=== PATIENT | male | born 1950 | race Caucasian/White ===

== ENCOUNTER → 2017-07-10 | Outpatient (CLI) | payer OTHER ==
[~2017-07-10] MED LIST: ALBU6.7H INH; ASPI-515 PO; BECL8.7A6 INH; FLUT200B INH; GUAI600T80 PO; LEVO500T47 PO; LOSA25TA2 PO; OMEP20TA62 PO; PRED20TA PO
== END | disposition home or self-care (01) ==
LOC: CFH 10:25
PROVIDERS: ATTEND Internal Medicine Cardiovascular Disease
DX: I08.0 Rheumatic disorders of both mitral and aortic valves (principal); J45.909 Unspecified asthma, uncomplicated
CPT/HCPCS: 93306

== ENCOUNTER 2018-12-23 06:46 | Outpatient (CLI) | payer OTHER | END 2018-12-23 23:59 | disposition home or self-care (01) | LOC: CVU 06:46 | PROVIDERS: ATTEND Internal Medicine Cardiovascular Disease | DX: I35.8 Other nonrheumatic aortic valve disorders (principal); I51.7 Cardiomegaly; J45.909 Unspecified asthma, uncomplicated | CPT/HCPCS: 0399T; 93306 ==

== ENCOUNTER 2019-06-13 08:11 | Emergency (ER) | payer MEDICARE, OTHER ==
[~2019-06-13] VITALS: Ht 185.4 cm; Wt 126.4 kg
[~2019-06-13 08:11] MED LIST changes: -ALBU6.7H INH; +ALBU6.7H8 INH
--- NOTE | 2019-06-13 08:20 | NUR ---
PATIENT BROUGHT BACK FROM TRIAGE WITH CHIEF COMPLAINT OF COUGH WITH PHLEGM FOR ONE WEEK, WITH INTERMITTENT FEVER. PATIENT DENIES CP, SOB. SOME NAUSEA WHEN TAKING ABX SO PATIENT STOPPED TAKING THEM. THE PATIENT IS ALERT, ORIENTED, WARM AND DRY.
[2019-06-13 09:11] LABS: BASOPHILS # (AUTO) 0.03 x10^3/uL (0-0.1); BASOPHILS % (AUTO) 1 % (0-1); EOSINOPHILS # (AUTO) 0.03 x10^3/uL (0-0.4); EOSINOPHILS % (AUTO) 1 % (1-7); LYMPHOCYTES # (AUTO) 1.36 x10^3/uL (1-3.4); LYMPHOCYTES % (AUTO) 28 % (22-44); MD NO; MEAN CORPUSCULAR HEMOGLOBIN 31.9 pg (27.5-34.5); MEAN CORPUSCULAR HGB CONC 33.9 g/dL (33.2-36.2); MEAN CORPUSCULAR VOLUME 94.2 fL (81-97); MONOCYTES # (AUTO) 0.85 x10^3/uL (0.2-0.8); MONOCYTES % (AUTO) 18 % (2-9); NEUTROPHILS # (AUTO) 2.56 x10^3/uL (1.8-6.8); NEUTROPHILS % (AUTO) 53 % (42-75); PLATELET COUNT 221 x10^3/uL (130-400); RED CELL DISTRIBUTION WIDTH 12.8 % (9.4-14.8)
[2019-06-13 09:20] LABS: ANION GAP 5 mmol/L (5-15); CALCIUM 8.6 mg/dL (8.5-10.1); CHLORIDE 105 mmol/L (98-107); CREATININE 1.15 mg/dL (0.7-1.3)
[2019-06-13 09:31] VITALS: BP 123/73
--- NOTE | 2019-06-13 09:31 | NUR ---
PT RESTING IN BED, CALL LIGHT IN REACH
--- NOTE | 2019-06-13 09:51 | NUR ---
CARE FOR DC ONLY PROVIDED. PT SITTING ON GURNEY. NO DISTRESS NOTED. NO IV TO DC. REVIEWED DC INSTRUCTIONS WITH PT. UNDERSTANDING VERBALIZED. PT LEFT AMB, GAIT STEAD.
== END 2019-06-13 09:53 | disposition home or self-care (01) ==
LOC: ED 09:40
DX: J02.8 Acute pharyngitis due to other specified organisms (principal); B97.89 Other viral agents as the cause of diseases classified elsewhere; J45.909 Unspecified asthma, uncomplicated
CPT/HCPCS: 36415; 71046; 80048; 82040; 83880; 85025; 93005; 99284

== ENCOUNTER 2019-06-17 17:56 | Emergency (ER) | payer MEDICARE, OTHER ==
[~2019-06-17] VITALS: Ht 182.9 cm; Wt 113.5 kg
[2019-06-17 17:56] VITALS: BP 149/100
--- NOTE | 2019-06-17 17:56 | NUR ---
SIDRA FROM [facility] C/O PERSISTENT LT CHEST PAIN X SEVERAL DAYS WITH SOB, WORSENS WITH DEEP BREATHS, MOVEMENT OR PALP; SEEN HERE 4 DAYS AGO FOR SAME, UNABLE TO TAKE PREDNISONE RX'D; PIV, PHENERGAN 12.5MG, TORADOL 30MG DECK OFFICER PER EMS; PT ABULATED TO AVERY WITH CGA, CHANGED INTO GOWN, RESPONDS APPROP TO STAFF W/O INCR WOB/SOB, COMFORT MEASURES PROVIDED, CALL LIGHT WITHIN REACH. CARDIAC, NIBP & SPO2 MONITORS IN PLACE.
--- NOTE | 2019-06-17 18:11 | NUR ---
PT TO CT
--- NOTE | 2019-06-17 18:19 | NUR ---
PT RETURNED FROM CT
[2019-06-17] MEDS ORDERED: BENZ100C PO (18:21)
[2019-06-17] MEDS ORDERED: PRED20TA PO (18:21)
[2019-06-17] MEDS ORDERED: CYCL-259 PO (18:21)
[2019-06-17] MEDS ORDERED: XOPENEX INHALER (18:21)
[2019-06-17] MEDS ORDERED: NAPR-816 PO (18:21)
[2019-06-17] MEDS ORDERED: XOPENEX NEBULIZER (18:21)
--- NOTE | 2019-06-17 18:49 | NUR ---
Patient given discharge instructions and they have confirmed that they understand the instructions. Patient ambulatory with steady gait.
== END 2019-06-17 18:49 | disposition home or self-care (01) ==
LOC: ED 18:40
DX: S22.32XB Fracture of one rib, left side, initial encounter for open fracture (principal); X58.XXXA Exposure to other specified factors, initial encounter; Y93.89 Activity, other specified; Y92.89 Other specified places as the place of occurrence of the external cause; Y99.8 Other external cause status
CPT/HCPCS: 71250; 93005; 99284

== ENCOUNTER 2019-06-30 11:07 | Outpatient (CLI) | payer OTHER ==
[~2019-06-30 11:07] MED LIST changes: +BENZ100C PO; +CYCL-259 PO; +NAPR-816 PO; +XOPENEX INHALER; +XOPENEX NEBULIZER
== END 2019-06-30 23:59 | disposition home or self-care (01) ==
LOC: CVU 11:07
PROVIDERS: ATTEND Internal Medicine Cardiovascular Disease
DX: I06.0 Rheumatic aortic stenosis (principal)
CPT/HCPCS: 93306

== ENCOUNTER → 2020-11-25 | Outpatient (CLI) | payer OTHER ==
[~2020-11-25] MED LIST changes: -ASPI-515 PO; +ASPI-963 PO; -CYCL-259 PO; +CYCL10TA2 PO
[2020-11-25 10:18] LABS: ALANINE AMINOTRANSFERASE 33 U/L (12-78); ALBUMIN 4.2 g/dL (3.4-5.0); ANION GAP 4 mmol/L (5-15); CHLORIDE 106 mmol/L (98-107); CHOLESTEROL, TOTAL 214 mg/dL (140-239); CREATININE 0.99 mg/dL (0.7-1.3)
[2020-11-25 10:42] LABS: ALKALINE PHOSPHATASE 74 U/L (45-117); BILIRUBIN,TOTAL 1.2 mg/dL (0.2-1.0); CHOL/HDL RATIO 3.6; HDL CHOL % 28 % (26-37); HDL CHOLESTEROL (DIRECT) 59 mg/dL (40-60); LDL CHOLESTEROL,CALCULATED 121 mg/dL (54-169); LDL/HDL RATIO 2.1 (0.5-3.0); T4 (THYROXINE) 7.3 mcg/dL (4.5-12.1); TOTAL PROTEIN 7.1 g/dL (6.4-8.2); TRIGLYCERIDES 169 mg/dL (50-200); VLDL CHOLESTEROL 34 mg/dL (0-25)
== END | disposition home or self-care (01) ==
LOC: CVU 08:43
PROVIDERS: ATTEND Internal Medicine Cardiovascular Disease
DX: I08.0 Rheumatic disorders of both mitral and aortic valves (principal); E78.00 Pure hypercholesterolemia, unspecified; E78.2 Mixed hyperlipidemia; G47.33 Obstructive sleep apnea (adult) (pediatric); I49.3 Ventricular premature depolarization; J02.9 Acute pharyngitis, unspecified; J06.9 Acute upper respiratory infection, unspecified; J18.9 Pneumonia, unspecified organism; J45.909 Unspecified asthma, uncomplicated; J92.9 Pleural plaque without asbestos
CPT/HCPCS: 36415; 80053; 80061; 84436; 84443; 84481; 93306